=== PATIENT | male | born 1955 | race Caucasian/White ===

== ENCOUNTER 2025-10-20 00:22 | Emergency (ER) | payer MEDICARE, MEDICAID ==
[~2025-10-20] VITALS: Ht 177.8 cm; Wt 108.9 kg
[2025-10-20 01:29] LABS: PLATELET COUNT (AUTO) 170 K/uL (152-348); RED BLOOD CELL COUNT(AUTO) 4.45 MIL/uL (4.06-5.63); RED CELL DISTRIBUTION WIDTH 15.1 % (12.1-16.2); WHITE BLOOD COUNT (AUTO) 4.4 K/uL (3.6-10.2)
[2025-10-20 01:44] LABS: CREATININE 0.9 mg/dL (0.6-1.3); SODIUM SERUM 143 mmol/L (136-145); UREA NITROGEN, BLOOD 18 mg/dL (7-18)
[2025-10-20 01:49] LABS: ASPARTATE AMINOTRANSFERASE 17 U/L (15-37); TOTAL PROTEIN, SERUM 6.5 g/dL (6.4-8.2)
[2025-10-20] MEDS ORDERED: ACETAMINOPHEN 500 MG TABLET ONE (02:18)
[2025-10-20] MEDS ORDERED: NAPROXEN 500 MG TABLET ONE (02:18)
[2025-10-20] MEDS: NAPROXEN 500 MG TABLET PO ONE (02:21)
[2025-10-20] MEDS: ACETAMINOPHEN 500 MG TABLET PO ONE (02:21)
[2025-10-20 05:01] VITALS: BP 136/78
[2025-10-20 08:10] VITALS: BP 136/78; O2SAT 95
== END 2025-10-20 08:11 | disposition home or self-care (01) ==
LOC: ER 00:24
DX: R55 Syncope and collapse (principal); R07.89 Other chest pain; M25.511 Pain in right shoulder; M25.512 Pain in left shoulder; F12.90 Cannabis use, unspecified, uncomplicated; Z59.00 Homelessness unspecified
CPT/HCPCS: 36415; 71045; 83735; 84484; 85025; A4606; A4663; A9150